=== PATIENT | female | born 1970 | race Two or more races ===

== ENCOUNTER 2025-10-02 11:54 | Emergency (ER) | payer MEDICAID, OTHER ==
[~2025-10-02] VITALS: Ht 162.6 cm; Wt 65.6 kg
[2025-10-02 13:06] VITALS: BP 149/110; PULSE 91; RESP 17; TEMP 98.6; O2SAT 96
--- NOTE | 2025-10-02 13:21 | ED.PDOC ---
HPI Allergic reaction HPI Comments A 55 YEAR OLD FEMALE PRESENTS TO THE ED WITH COMPLAINT OF ALLERGIC REACTION. PT STATES SHE HAD BEE STING YESTERDAY ON LOWER LIP. PT STATES SINCE,SHE STARTED TO HAVING INCREASING URTICARIA AND SWELLING TO THE L SIDE OF HER FACE AND CAME TODAY FOR FURTHER EVALUATION. PT DENIES ANY ASSOCIATED RESPIRATORY DISTRESS UPON ARRIVAL TO THE ED. PT OTHERWISE HAS STABLE VITALS IN THE ED PATIENT DENIES FEVER, CHILLS, SHORTNESS OF BREATH, CHEST PAIN, ABDOMINAL PAIN, NAUSEA, VOMITING, HEADACHE, OR OTHER COMPLAINTS. NO OTHER SYMPTOMS OR MODIFYING FACTORS AT THIS TIME. PATIENT IS ALERT, ORIENTED X 4, AND HAS STEADY GAIT. Chief Complaint: Face pain Time Seen by MD: 13:15 Reviewed Notes: Nurses Notes, Medications, Allergies Allergies: Coded Allergies: Penicillins (Verified Allergy, Severe, 10/02/25) Home Meds Active Scripts Methylprednisolone (Medrol Dosepak) 4 Mg Aamir, 4 MG PO UD, #21 TAB UAD Prov:LATIA MERRITT 10/02/25 Cephalexin Monohydrate (Cephalexin) 500 Mg Cap, 1 CAP PO QID, #28 CAP Prov:LATIA MERRITT 10/02/25 Triamcinolone Acetonide (Triamcinolone Acetonide) 0.025 % Cre, 1 APPLIC TOP BID, #15 GRAMS Prov:LATIA MERRITT 10/02/25 Information Source: Patient Mode of Arrival: Ambulatory Brought in by: SELF Severity: Mild, Moderate Rash: Mild, Moderate SOB: None Difficulty swallowing: None Pruritus: Moderate Timing: Days Duration: Since onset, Days Prehospital treatment: None Location: Face Exposed to: Insect Developed: Facial Swelling, Pruritus, Rash History of: None Modyifying Factors: Not Used Associated Sign and Symptoms: None Past Medical History PAST MEDICAL HISTORY: Denies Surgical History: Denies all surgeries REAL ESTATE PROCESSOR History: Denies all REAL ESTATE PROCESSOR Hx Family History Family History: Reviewed,noncontributory to illness Social History Smoker: Non-Smoker Alcohol: Denies ETOH Use Drugs: Denies Drug Use Lives In: Home Constitutional: denies: chills, diaphoresis, fatigue, fever, malaise, sweats, weakness, others EENTM: denies: blurred vision, double vision, ear bleeding, ear discharge, ear drainage, ear pain, ear ringing, eye pain, eye redness, hearing loss, mouth p ain, mouth swelling, nasal discharge, nose bleeding, nose congestion, nose pain, photophobia, tearing, throat pain, throat swelling, voice changes, others Respiratory: denies: cough, hemoptysis, orthopnea, SOB at rest, shortness of br eath, SOB with excertion, stridor, wheezing, others Cardiovascular: denies: chest pain, dizzy spells, diaphoresis, Dyspnea on exertion, edema, irregular heart beat, left arm pain, lightheadedness, palpitations, PND, syncope, others Gastrointestinal: denies: abdomen distended, abdominal pain, blood streaked bowels, constipated, diarrhea, dysphagia, difficulty swallowing, hematemesis, melena, nausea, poor appetite, poor fluid intake, rectal bleeding, rectal pain, vomiting, others Genitourinary: denies: abnormal vagina bleeding, burning, dyspareunia, dysuria, flank pain, frequency, hematuria, incontinence, pain, , vagina discharge, urgency, others Neurological: denies: dizziness, fainting, headache, left sided numbness, left sided weakness, numbness, paresthesia, pre-existing deficit, right sided numbness, right sided weakness, seizure, speech problems, tingling, tremors, weakness, others Musculoskeletal: denies: back pain, gout, joint pain, joint swelling, muscle pain, muscle stiffness, neck pain, others Integumetry: reports: lumps (LEFT LOWER JAW REGION. ), rash; denies: bruises, change in color, change in hair/nails, dryness, laceration, lesions, wounds, others Allergic/Immunocompromised: reports: Hives, Itching, others (L SIDED FACIAL SWELLING); denies: Difficulty Healing, Frequent Infections Hematologic/Lymphatic: denies: anemia, blood clots, easy bleeding, easy bruising, swollen glands, others Endocrine: denies: excessive hunger, excessive sweating, excessive thirst, excessive urination, flushing, intolerance to cold, intolerance to heat, unexplained weight gain, unexplained weight loss, others Psychiatric: denies: anxiety, bipolar disorder, depression, hopeless, panic disorder, schizophrenia, sleepless, suicidal, others All Other Systems: Reviewed and Negative Physical Exam General Appearance: No Apparent Distress, Normal HEENT: Normal ENT Inspection, PERRL/EOMI, Pharynx Normal, TMs Normal, Other (REDNESS AND MILD SWELLING ON LEFT JAR REGION, NO OPEN WOUND SEEN. BEE STING BITE ON LEFT LOWER RIP REGION. ) Neck: Full Range of Motion, Non-Tender, Normal, Normal Inspection Respiratory: Chest Non-Tender, Lungs Clear, No Accessory Muscle Use, No Respiratory Distress, Normal Breath Sounds Cardiovascular: No Edema, No JVD, No Murmur, No Gallop, Normal Peripheral Pulses, Regular Rate/Rhythm Breast Exam: Deferred Gastrointestinal: No Organomegaly, Non Tender, No Pulsatile Mass, Normal Bowel Sounds, Soft Genitalia: Deferred Pelvic: Deferred Rectal: Deferred Extremities: No calf tenderness, Normal capillary refill, Normal inspection, Normal range of motion, Non-tender, No pedal edema Musculoskeletal : Apperance: Normal Neurologic: Alert, tie puller II-XII nml as Tested, No Motor Deficits, Normal Affect, Normal Mood, No Sensory Deficits Cerebellar Function: Normal Reflexes: Normal Skin: Dry, Normal Color, Rash (LOCALIZED REDNESS AND SWELLING ON LEFT JAW REGION, NO SKIN HARDNESS AND OPEN WOUND. ), Warm, Wounds (A TINY PUNCTURE WOUND ON LEFT LOWER LIP, NO SWELLING AND BLEEDING. ) Peripheral Pulses: 2+ carotid (R), 2+ carotid (L) Lymphatic: No Adenopathy Was a procedure done? Was a procedure done?: No Differential diagnosis (all) Differential Diagnosis: Angioedema, Drug Reaction, Urticaria Other Differential Diagnosis BEE STING, ALLERGIC REACTION, X-Ray, Labs, Meds, VS Vital Signs Date Time Temp Pulse Resp B/P (MAP) Pulse Ox O2 Delivery O2 Flow Rate FiO2 10/02/25 13:06 91 17 96 Room Air 10/02/25 13:06 98.6 91 17 149/110 (123) 96 98.6 10/02/25 11:55 98.0 88 15 136/109 98 98.0 Current Medications Medications (Trade) Dose Ordered Sig/Jose Maria Route Start Time Stop Time Status Last Admin Methylprednisolone Sodium Succinate (Solu Medrol) 125 mg ONCE ONCE IM 10/02/25 13:15 10/02/25 13:16 DC 10/02/25 13:22 Ceftriaxone Sodium (Rocephin) 1,000 mg ONCE ONCE IM 10/02/25 13:15 10/02/25 13:16 DC 10/02/25 13:22 X-Ray, Labs, Meds, VS Comment COURSE: EXTERNAL MEDICAL RECORDS REVIEWED: [NONE] INDEPENDENT HISTORIANS: [NONE] SOCIAL DETERMINANTS OF HEALTH: [NONE] LABS ORDERED: NONE REVIEWED AND INTERPRETED RESULTS: NONE IMAGING ORDERED: NONE TREATMENTS ORDERED: ROCEPHIN 1 G, SOLUMEDROL 125 MG PROCEDURES PERFORMED: NONE CRITICAL CARE TIME: NONE I HAVE DISCUSSED THE PATIENT WITH THE ATTENDING PHYSICIAN DR. DAVID AND HE AGREES WITH THE PATIENT'S PLAN OF CARE AND DISPOSITION. BASED ON HISTORY OF PRESENT ILLNESS, AND PHYSICAL EXAM, PATIENT WILL BE DISCHARGED HOME. DISCUSSED PLAN FOR DISCHARGE HOME WITH RX KEFLEX, SOLUMEDROL AND TRIAMCINOLONE MEDICATION WARNINGS GIVEN. SHARED DECISION MAKING: DISCUSSED WITH PATIENT THAT THEIR WORKUP WAS NORMAL. PATIENT INSTRUCTED TO FOLLOW UP WITH PRIMARY CARE PROVIDER IN 1-2 DAYS FOR RE- EVALUATION OF SYMPTOMS. PATIENT VERBALIZES UNDERSTANDING TO RETURN TO ED FOR NEW OR WORSENING SYMPTOMS OR IF FOLLOW UP WITH PCP CANNOT BE OBTAINED. PATIENT FEELS COMFORTABLE GOING HOME AT THIS TIME. ALL QUESTIONS ADDRESSED AT TIME OF DISCHARGE. Time of 1ST Reevaluation: 13:54 Reevaluation 1ST: Improved Patient Education/Counseling: Diagnosis, Treatment, Need For Follow Up Family Education/Counseling: Diagnosis, Treatment, No Family Present Medical Screening: No EMC Exist At This Time SEPSIS Sepsis Screen Date sepsis recognized/suspect: Oct 02, 2025 Time Sepsis recognized/suspect: 1157 Recent Procedure: No On Antibiotic Therapy: No Respiratory Rate >20: No Heart Rate >90: No Temp<36 C (96.8 F) or >38.3 C: No SBP <90 or MAP <65 mmHG: No New Acute Mental Status Change: No Is the patient on CPAP, BIPAP,: No Vital Signs Date Time Temp Pulse Resp B/P (MAP) Pulse Ox O2 Delivery O2 Flow Rate FiO2 10/02/25 13:06 91 17 96 Room Air 10/02/25 13:06 98.6 91 17 149/110 (123) 96 98.6 10/02/25 11:55 98.0 88 15 136/109 98 98.0 Medications Medications Dose Ordered Sig/Jose Maria Route Start Time Stop Time Status Last Admin Dose Admin Ceftriaxone Sodium 1,000 mg ONCE ONCE IM 10/02/25 13:15 10/02/25 13:16 DC 10/02/25 13:22 Methylprednisolone Sodium Succinate 125 mg ONCE ONCE IM 10/02/25 13:15 10/02/25 13:16 DC 10/02/25 13:22 Departure 1 Departure Time of Disposition: 14:00 Impression: Primary Impression: Bee sting reaction Qualified Codes: T63.441A - Toxic effect of venom of bees, accidental (unintentional), initial encounter Disposition: HOME / SELF CARE / HOMELESS Condition: Stable Additional Instructions: INSTRUCTIONS: FOLLOW-UP WITH PCP IN 1 TO 2 DAYS. TAKE MEDICATIONS PRESCRIBED. RETURN TO ED FOR ANY NEW OR WORSENING SYMPTOMS. e-Prescriptions Methylprednisolone (Medrol Dosepak) 4 Mg Aamir 4 MG PO UD, #21 TAB UAD Prov: LATIA MERRITT 10/02/25 Cephalexin Monohydrate (Cephalexin) 500 Mg Cap 1 CAP PO QID, #28 CAP Prov: LATIA MERRITT 10/02/25 Triamcinolone Acetonide (Triamcinolone Acetonide) 0.025 % Cre 1 APPLIC TOP BID, #15 GRAMS Prov: LATIA MERRITT 10/02/25 Discharged With: Self Critical Care Note Critical Care Time?: No Stability Stability form required: No Heart Score Heart Score: Heart Score Response (Comments) Value History N/A 0 EKG N/A 0 Age N/A 0 Risk Factors N/A 0 Troponin N/A 0 Total 0 I personally scribed for LATIA MERRITT ([email or web address]) on 10/02/25 at 13:21. Electronically submitted by Chiquita Riddle ([email or web address]). I personally scribed for LATIA MERRITT ([email or web address]) on 10/02/25 at 13:49. Electronically submitted by Chiquita Riddle ([email or web address]). LATIA MERRITT Oct 02, 2025 13:21
[2025-10-02] MEDS: methylPREDNISolone SOD SUCC 125 MG/2 ML VL IM ONE (13:22)
[2025-10-02] MEDS: cefTRIAXone SOD 1,000 MG VL IM ONE (13:22)
[2025-10-02] MEDS ORDERED: TRIA0.02 TOP (13:49)
[2025-10-02] MEDS ORDERED: CEPH500C PO (13:49)
[2025-10-02] MEDS ORDERED: METH4PAK PO (13:49)
== END 2025-10-02 13:56 | disposition home or self-care (01) ==
LOC: ER 11:54
DX: L50.9 Urticaria, unspecified (principal); T63.441A Toxic effect of venom of bees, accidental (unintentional), initial encounter; Z88.0 Allergy status to penicillin; X58.XXXA Exposure to other specified factors, initial encounter
CPT/HCPCS: 96372; 99284; J0696; J2919